=== PATIENT | male | born 1995 | race African-American/Black ===

== ENCOUNTER 2016-10-28 07:06 | Emergency (ER) | payer OTHER ==
--- NOTE | 2016-10-28 09:09 | EDDOCDS ---
Physician Documentation [facility] Name: Renny Ford Age: 21 yrs Sex: Male : 1995 Arrival Date: 10/28/2016 Time: 07:06 Bed I1 / M1 Private MD: Disposition: 10/28/16 08:59 Discharged to Home/Self Care. Impression: Laceration without foreign body of right hand. - Condition is Stable. - Discharge Instructions: Sutured Wound Care. - Prescriptions for Augmentin 875- 125 mg Oral Tablet - take 1 tablet by ORAL route every 12 hours for 5 days; 10 tablet. - Medication Reconciliation form. - Follow up: Alejandrina Stapleton [facility]; When: 10 - 14 days; Reason: Staple/Suture removal. - Problem is new. - Symptoms have improved. - Notes: Keep area clean and dry. Follow up in 10 days for suture removal. Historical: - Allergies: no known allergies; - Home Meds: 1. none - PMHx: none; - PSHx: none; - Immunization history:: Last tetanus immunization: up to date. - Family history: Not pertinent. - Social history: Smoking status: Patient/guardian denies using No barriers to communication noted, The patient speaks fluent Estonian. - : The pt / caregiver states he / she is not on anticoagulants. Home medication list is obtained from the patient. - Exposure Risk Screening:: None identified. Vital Signs: 10/28 07:59 BP 134 / 66; Pulse 74; Resp 20; Temp 96.5(O); Pulse Ox 95% on R/A; Weight 86.18 kg / dem1 189.99 lbs (R); Height 5 ft. 7 in. (170.18 cm) (R); Pain 3/10; 09:02 BP 124 / 81; Pulse 75; Resp 18; Temp 97.3(O); Pulse Ox 98% on R/A; Pain 0/10; dem1 07:59 Body Mass Index 29.76 (86.18 kg, 170.18 cm) dem1 MDM: 08:49 Financial registration complete. mm15 08:56 [facility] Payment Agreement was scanned into [employer] and attached to record. mm15 Signatures: Madeline Gonzáles RN RN Valdo Tay mm15 [place], LUZ MARIA Osorio PA-C cc10 The chart was reviewed and I authenticate all verbal orders and agree with the evaluation and treatment provided.Attachments: 08:56 [facility] Payment Agreement mm15 MTDD
--- NOTE | 2016-10-28 09:09 | EDDOCDS ---
Nurse's Notes [facility] Name: Renny Ford Age: 21 yrs Sex: Male : 1995 Arrival Date: 10/28/2016 Time: 07:06 Bed I1 / M1 Private MD: Diagnosis: Laceration without foreign body of right hand Presentation: 10/28 07:48 Presenting complaint: Patient states: Pt presents with laceration to right 5th finger dls states he slipped and fell around 3am and sustained injury. Compartment Syndrome Evaluation: No compartment is involved. Adult Sepsis Screening: The patient does not have new or worsening altered mentation. Patient's respiratory rate is less than 22. Systolic blood pressure is greater than 100. Patient has a qSOFA score of 0- Negative Sepsis Screen. Mental Health Triage Level: Not applicable. Suicide/Homicide risk assessment- the patient denies having any suicidal and/or homicidal ideations and does not present with any other emotional, behavioral or mental health complaints. 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 Transition of care: patient was not received from another setting of care. 07:48 Acuity: KEVIN Level 5 dls 07:48 Method Of Arrival: Walkin/Carried/Asstd dls Triage Assessment: 07:50 General: Appears uncomfortable, well developed, well nourished, well groomed, Behavior dls is cooperative. Pain: Pain currently is 3 out of 10 on a pain scale. HIV screening NA for this visit Offered previously. Historical: - Allergies: no known allergies; - Home Meds: 1. none - PMHx: none; - PSHx: none; - Immunization history:: Last tetanus immunization: up to date. - Family history: Not pertinent. - Social history: Smoking status: Patient/guardian denies using No barriers to communication noted, The patient speaks fluent Latvian. - : The pt / caregiver states he / she is not on anticoagulants. Home medication list is obtained from the patient. - Exposure Risk Screening:: None identified. Screenin:06 Screening information is obtained from the patient. Primary language is Latvian. Fall dls risk: No risks identified. Assistance ADL's: requires no assistance with activities of daily living. Abuse/DV Screen: The patient / caregiver reports he/she is: not in a situation that causes fear, pain or injury. Nutritional screening: No deficits noted. Advance Directives: Currently, there is no health care proxy. There is no active DNR order. There is no living will. There is no Power of Assistant Secretary. Advance directive information has not previously been placed in an [facility] medical record. home support is adequate. Assessment: 09:05 General: Appears in no apparent distress, well developed, well nourished, well groomed, dls Behavior is cooperative. Awake, alert, oriented. Skin warm and dry. Moves all extremities. Bilateral breath sounds clear. Respirations unlabored. Abdomen soft, non-tender. No apparent distress. Laceration across base of right 5th finger no active bleeding noted pt has full ROM.. Vital Signs: 07:59 BP 134 / 66; Pulse 74; Resp 20; Temp 96.5(O); Pulse Ox 95% on R/A; Weight 86.18 kg (R); dem1 Height 5 ft. 7 in. (170.18 cm) (R); Pain 3/10; 09:02 BP 124 / 81; Pulse 75; Resp 18; Temp 97.3(O); Pulse Ox 98% on R/A; Pain 0/10; dem1 07:59 Body Mass Index 29.76 (86.18 kg, 170.18 cm) dem1 Vitals: 07:50 Log In Time: October 28, 2016 at 07:07. [facility] ED Course: 07:07 Patient visited by Carmella Addison Reg. hs2 07:07 Patient moved to Waiting hs2 07:48 Patient moved to Triage 1 dls 07:50 Triage Initiated dls 07:51 Patient moved to I1 / M1 dls 08:01 Patient visited by Gauri Mason. dem1 08:35 [facility] cc10 08:35 Donnie Nelson MD is Attending Physician. cc10 08:35 Patient visited by Devon Maxwell PA-C. cc10 08:35 Patient visited by Devon Maxwell PA-C. cc10 08:56 [facility] Payment Agreement was scanned into [employer] and attached to record. mm15 08:59 Alejandrina Stapleton [facility] is Referral Physician. cc10 09:03 Patient visited by Gauri Mason. dem1 09:06 Patient has correct armband on for positive identification. Bed in low position. Call dls light in reach. 09:07 No IV's were initiated during this patient's visit. No procedures done that require dls assistance. Order Results: There are currently no results for this order. Outcome: 08:59 Discharge ordered by Provider. cc10 09:06 The following High Risk Discharge criteria are identified: None. Discharged to home dls ambulatory. Condition: stable. Discharge instructions given to patient, Instructed on discharge instructions, follow up and referral plans. medication usage, wound care, Demonstrated understanding of instructions, medications, Pt was receptive of discharge instructions/ teaching. Prescriptions given X 1. No special radiology studies were completed. 09:08 Discharge Assessment: Patient awake, alert and oriented x 3. No cognitive and/or dls functional deficits noted. Patient verbalized understanding of disposition instructions. patient administered narcotics - no. Property sent home with patient. 09:08 Patient left the ED. dls Signatures: Madeline Gonzáles RN RN dls Gauri Mason dem1 Valdo Deleon mm15 Devon Maxwell PA-Petty PA-Petty cc10 Carmella Addison, Reg Reg hs2 MTDD
--- NOTE | 2016-10-30 10:10 | EDDOCDS ---
Physician Documentation [facility] Name: Renny Ford Age: 21 yrs Sex: Male : 1995 Arrival Date: 10/28/2016 Time: 07:06 Bed I1 / M1 Private MD: Disposition: 10/28/16 08:59 Discharged to Home/Self Care. Impression: Laceration without foreign body of right hand. - Condition is Stable. - Discharge Instructions: Sutured Wound Care. - Prescriptions for Augmentin 875- 125 mg Oral Tablet - take 1 tablet by ORAL route every 12 hours for 5 days; 10 tablet. - Medication Reconciliation form. - Follow up: Alejandrina Stapleton [facility]; When: 10 - 14 days; Reason: Staple/Suture removal. - Problem is new. - Symptoms have improved. - Notes: Keep area clean and dry. Follow up in 10 days for suture removal. Historical: - Allergies: no known allergies; - Home Meds: 1. none - PMHx: none; - PSHx: none; - Immunization history:: Last tetanus immunization: up to date. - Family history: Not pertinent. - Social history: Smoking status: Patient/guardian denies using No barriers to communication noted, The patient speaks fluent Slovenian. - : The pt / caregiver states he / she is not on anticoagulants. Home medication list is obtained from the patient. - Exposure Risk Screening:: None identified. Vital Signs: 10/28 07:59 BP 134 / 66; Pulse 74; Resp 20; Temp 96.5(O); Pulse Ox 95% on R/A; Weight 86.18 kg / dem1 189.99 lbs (R); Height 5 ft. 7 in. (170.18 cm) (R); Pain 3/10; 09:02 BP 124 / 81; Pulse 75; Resp 18; Temp 97.3(O); Pulse Ox 98% on R/A; Pain 0/10; dem1 07:59 Body Mass Index 29.76 (86.18 kg, 170.18 cm) dem1 Procedures: 09:09 Laceration repair:. cc10 Laceration: 09:09 Wound Repair of 2cm ( 0.8in ) full thickness laceration to dorsal aspect of proximal cc10 phalanx of right little finger. Linear shaped.. Distal neuro/vascular/tendon intact. Anesthesia: Local anesthetic administered with 2.5 mls of 2% lidocaine. Wound prep: Moderate cleansing with betadine by provider, Wound irrigation with saline by provider. Skin closed with 3 x 4-0 Nylon using Simple interrupted sutures. Dressed with Bacitracin. Patient tolerated well. MDM: 08:49 Financial registration complete. mm15 08:56 [facility] Payment Agreement was scanned into [employer] and attached to record. mm15 15:57 T-Sheet-- Draft Copy was scanned into [employer] and attached to record. klr Signatures: Madeline Gonzáles RN RN Valdo Tay mm15 Devon Maxwell PA-C PASanjay cc10 Kristel Lagosr The chart was reviewed and I authenticate all verbal orders and agree with the evaluation and treatment provided.Attachments: 08:56 [facility] Payment Agreement mm15 15:57 T-Sheet-- Draft Copy klr Chart Complete MTDD
--- NOTE | 2016-10-30 10:10 | EDDOCDS ---
Nurse's Notes [facility] Name: Renny Ford Age: 21 yrs Sex: Male : 1995 Arrival Date: 10/28/2016 Time: 07:06 Bed I1 / M1 Private MD: Diagnosis: Laceration without foreign body of right hand Presentation: 10/28 07:48 Presenting complaint: Patient states: Pt presents with laceration to right 5th finger dls states he slipped and fell around 3am and sustained injury. Compartment Syndrome Evaluation: No compartment is involved. Adult Sepsis Screening: The patient does not have new or worsening altered mentation. Patient's respiratory rate is less than 22. Systolic blood pressure is greater than 100. Patient has a qSOFA score of 0- Negative Sepsis Screen. Mental Health Triage Level: Not applicable. Suicide/Homicide risk assessment- the patient denies having any suicidal and/or homicidal ideations and does not present with any other emotional, behavioral or mental health complaints. 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 Transition of care: patient was not received from another setting of care. 07:48 Acuity: KEVIN Level 5 dls 07:48 Method Of Arrival: Walkin/Carried/Asstd dls Triage Assessment: 07:50 General: Appears uncomfortable, well developed, well nourished, well groomed, Behavior dls is cooperative. Pain: Pain currently is 3 out of 10 on a pain scale. HIV screening NA for this visit Offered previously. Historical: - Allergies: no known allergies; - Home Meds: 1. none - PMHx: none; - PSHx: none; - Immunization history:: Last tetanus immunization: up to date. - Family history: Not pertinent. - Social history: Smoking status: Patient/guardian denies using No barriers to communication noted, The patient speaks fluent [place]. - : The pt / caregiver states he / she is not on anticoagulants. Home medication list is obtained from the patient. - Exposure Risk Screening:: None identified. Screenin:06 Screening information is obtained from the patient. Primary language is Citizen [place]. Fall dls risk: No risks identified. Assistance ADL's: requires no assistance with activities of daily living. Abuse/DV Screen: The patient / caregiver reports he/she is: not in a situation that causes fear, pain or injury. Nutritional screening: No deficits noted. Advance Directives: Currently, there is no health care proxy. There is no active DNR order. There is no living will. There is no Power of Culinary Specialist. Advance directive information has not previously been placed in an [facility] medical record. home support is adequate. Assessment: 09:05 General: Appears in no apparent distress, well developed, well nourished, well groomed, dls Behavior is cooperative. Awake, alert, oriented. Skin warm and dry. Moves all extremities. Bilateral breath sounds clear. Respirations unlabored. Abdomen soft, non-tender. No apparent distress. Laceration across base of right 5th finger no active bleeding noted pt has full ROM.. Vital Signs: 07:59 BP 134 / 66; Pulse 74; Resp 20; Temp 96.5(O); Pulse Ox 95% on R/A; Weight 86.18 kg (R); dem1 Height 5 ft. 7 in. (170.18 cm) (R); Pain 3/10; 09:02 BP 124 / 81; Pulse 75; Resp 18; Temp 97.3(O); Pulse Ox 98% on R/A; Pain 0/10; dem1 07:59 Body Mass Index 29.76 (86.18 kg, 170.18 cm) dem1 Vitals: 07:50 Log In Time: October 28, 2016 at 07:07. [facility] ED Course: 07:07 Patient visited by Carmella Addison Reg. hs2 07:07 Patient moved to Waiting hs2 07:48 Patient moved to Triage 1 dls 07:50 Triage Initiated dls 07:51 Patient moved to I1 / M1 dls 08:01 Patient visited by Gauri Mason. dem1 08:35 Devon [facility] cc10 08:35 Donnie Nelson MD is Attending Physician. cc10 08:35 Patient visited by Devon Maxwell PA-C. cc10 08:35 Patient visited by Devon Maxwell PA-C. cc10 08:56 [facility] Payment Agreement was scanned into [employer] and attached to record. mm15 08:59 Alejandrina Stapleton [facility] is Referral Physician. cc10 09:03 Patient visited by Gauri Mason. dem1 09:06 Patient has correct armband on for positive identification. Bed in low position. Call dls light in reach. 09:07 No IV's were initiated during this patient's visit. No procedures done that require dls assistance. 15:57 T-Sheet-- Draft Copy was scanned into [employer] and attached to record. klr Order Results: There are currently no results for this order. Outcome: 08:59 Discharge ordered by Provider. cc10 09:06 The following High Risk Discharge criteria are identified: None. Discharged to home dls ambulatory. Condition: stable. Discharge instructions given to patient, Instructed on discharge instructions, follow up and referral plans. medication usage, wound care, Demonstrated understanding of instructions, medications, Pt was receptive of discharge instructions/ teaching. Prescriptions given X 1. No special radiology studies were completed. 09:08 Discharge Assessment: Patient awake, alert and oriented x 3. No cognitive and/or dls functional deficits noted. Patient verbalized understanding of disposition instructions. patient administered narcotics - no. Property sent home with patient. 09:08 Patient left the ED. dls Signatures: Madeline Gonzáles RN RN dls Gauri Mason dem1 Vadlo Deleon mm15 Devon Maxwell, PA-C PA-C cc10 Carmella Addison, Reg Reg hs2 Kristel Lagos klr Chart Complete MTDD
--- NOTE | 2016-10-30 10:10 | EDDOCDS ---
Physician Documentation [facility] Name: Renny Ford Age: 21 yrs Sex: Male : 1995 Arrival Date: 10/28/2016 Time: 07:06 Bed I1 / M1 Private MD: Disposition: 10/28/16 08:59 Discharged to Home/Self Care. Impression: Laceration without foreign body of right hand. - Condition is Stable. - Discharge Instructions: Sutured Wound Care. - Prescriptions for Augmentin 875- 125 mg Oral Tablet - take 1 tablet by ORAL route every 12 hours for 5 days; 10 tablet. - Medication Reconciliation form. - Follow up: Alejandrina Stapleton [facility]; When: 10 - 14 days; Reason: Staple/Suture removal. - Problem is new. - Symptoms have improved. - Notes: Keep area clean and dry. Follow up in 10 days for suture removal. Historical: - Allergies: no known allergies; - Home Meds: 1. none - PMHx: none; - PSHx: none; - Immunization history:: Last tetanus immunization: up to date. - Family history: Not pertinent. - Social history: Smoking status: Patient/guardian denies using No barriers to communication noted, The patient speaks fluent Indonesian. - : The pt / caregiver states he / she is not on anticoagulants. Home medication list is obtained from the patient. - Exposure Risk Screening:: None identified. Vital Signs: 10/28 07:59 BP 134 / 66; Pulse 74; Resp 20; Temp 96.5(O); Pulse Ox 95% on R/A; Weight 86.18 kg / dem1 189.99 lbs (R); Height 5 ft. 7 in. (170.18 cm) (R); Pain 3/10; 09:02 BP 124 / 81; Pulse 75; Resp 18; Temp 97.3(O); Pulse Ox 98% on R/A; Pain 0/10; dem1 07:59 Body Mass Index 29.76 (86.18 kg, 170.18 cm) dem1 Procedures: 09:09 Laceration repair:. cc10 Laceration: 09:09 Wound Repair of 2cm ( 0.8in ) full thickness laceration to dorsal aspect of proximal cc10 phalanx of right little finger. Linear shaped.. Distal neuro/vascular/tendon intact. Anesthesia: Local anesthetic administered with 2.5 mls of 2% lidocaine. Wound prep: Moderate cleansing with betadine by provider, Wound irrigation with saline by provider. Skin closed with 3 x 4-0 Nylon using Simple interrupted sutures. Dressed with Bacitracin. Patient tolerated well. MDM: 08:49 Financial registration complete. mm15 08:56 [facility] Payment Agreement was scanned into [employer] and attached to record. mm15 15:57 T-Sheet-- Draft Copy was scanned into [employer] and attached to record. klr Signatures: Madeline Gonzáles RN RN Valdo Tay mm15 Devon Maxwell PA-C PASanjay cc10 Kristel Lagosr The chart was reviewed and I authenticate all verbal orders and agree with the evaluation and treatment provided.Attachments: 08:56 [facility] Payment Agreement mm15 15:57 T-Sheet-- Draft Copy klr Chart Complete MTDD
== END 2016-10-28 09:08 | disposition home or self-care (01) ==
LOC: M ED 07:06
DX: S61.411A Laceration without foreign body of right hand, initial encounter (principal); W19.XXXA Unspecified fall, initial encounter; Y92.410 Unspecified street and highway as the place of occurrence of the external cause; Y93.9 Activity, unspecified; Y99.9 Unspecified external cause status

== ENCOUNTER 2017-02-06 03:15 | Emergency (ER) | payer OTHER ==
[~2017-02-06] VITALS: Ht 170.2 cm; Wt 86.2 kg
[2017-02-06] MEDS ORDERED: KETOROLAC 30 MG/ML VIAL (J1885) IV ONE (06:15)
[2017-02-06] MEDS ORDERED: ONDANSETRON 4MG/2ML VIAL (J2405) IV ONE (06:15)
[2017-02-06] MEDS ORDERED: NS 1,000 ML IV ONE (06:15)
[2017-02-06 06:34] LABS: BASO % 0.4 % (0.0-1.0); EOS % 0.9 % (0.0-3.0); LARGE UNSTAINED CELL # 0.1 K/mm3 (0.0-0.4); LARGE UNSTAINED CELL % 3.2 % (0.0-4.0); LYMPH # 2.5 K/mm3 (1.5-6.5); LYMPH % 53.6 % (24.0-44.0); MEAN CORPUSCULAR HGB CONC 33.4 g/dl (32.0-36.5); MONO # 0.3 K/mm3 (0.0-0.8); MONO % 7.2 % (0.0-5.0); NEUTROPHILS # 1.5 K/mm3 (1.8-7.7); NEUTROPHILS % 34.7 % (36.0-66.0); PLATELET COUNT, AUTOMATED 246 k/mm3 (150-450); RED CELL DISTRIBUTION WIDTH 13.1 % (11.5-14.5); WHITE BLOOD COUNT 4.3 K/mm3 (4.0-10.0)
[2017-02-06 06:53] LABS: ALBUMIN 4.2 GM/DL (3.2-5.2); ALBUMIN/GLOBULIN RATIO 1.27 (1.00-1.93); ALKALINE PHOSPHATASE 64 U/L (45-117); ALT/SGPT 33 U/L (12-78); ANION GAP 6 MEQ/L (8-16); AST/SGOT 42 U/L (15-37); BILIRUBIN,DIRECT 0.2 MG/DL (0.0-0.2); BILIRUBIN,TOTAL 0.8 MG/DL (0.2-1.0); BLOOD UREA NITROGEN 20 MG/DL (7-18); CALCIUM LEVEL 9.5 MG/DL (8.5-10.1); CARBON DIOXIDE LEVEL 28 MEQ/L (21-32); CHLORIDE LEVEL 103 MEQ/L (98-107); CREATININE FOR GFR 1.14 MG/DL (0.70-1.30); GLOMERULAR FILTRATION RATE > 60.0 (>60); GLUCOSE, FASTING 85 MG/DL (70-105); POTASSIUM SERUM 3.6 MEQ/L (3.5-5.1); SODIUM LEVEL 137 MEQ/L (136-145); TOTAL PROTEIN 7.5 GM/DL (6.4-8.2)
--- NOTE | 2017-02-06 07:10 | REP ---
Clinical: abdominal pain. Technique: Upright view of the chest with supine and upright views of the abdomen and pelvis. Findings: Frontal upright view of the chest demonstrates no acute cardiopulmonary process or free air below the diaphragm to suspect pneumoperitoneum. Supine and upright views of the abdomen and pelvis demonstrate nonspecific bowel gas pattern without obstruction or perforation. No organomegaly. No abnormal calcifications. Skeletal structures normal for age. Impression: Nonspecific bowel gas pattern. Signed by Richie Santos MD 02/06/2017 07:02 A
[2017-02-06 08:51] VITALS: BP 117/69
== END 2017-02-06 08:53 | disposition home or self-care (01) ==
LOC: M ED 04:38
DX: R10.9 Unspecified abdominal pain (principal); R11.2 Nausea with vomiting, unspecified
CPT/HCPCS: 74022; 80048; 80076; 83690; 85025; 96374; 96375; 99283; J1885; J2405